=== PATIENT | female | born 1955 | race Caucasian/White ===

== ENCOUNTER 2016-08-05 16:25 | Outpatient (CLI) | payer BC ==
[2016-08-05 17:28] LABS: ALT (SGPT) 12 U/L (0-55); AST (SGOT) 16 U/L (5-34); Alkaline Phosphatase 62 U/L (40-150); Anion Gap 10 mmol/L (10-20); BUN (Urea Nitrogen) 11 mg/dL (9.8-20.1); Bilirubin, Total 0.3 mg/dL (0.2-1.2); Calc. Creatinine Clearance 0 mL/min (70-130); Calcium 8.4 mg/dL (7.8-10.44); Carbon Dioxide 31 mmol/L (23-31); Chloride 104 mmol/L (98-107); Estimated GFR-MDRD 63; Globulin 2.4 g/dL (2.4-3.5); Glucose 77 mg/dL (80-115); Potassium 3.9 mmol/L (3.5-5.1); Protein, Total 6.4 g/dL (5.8-8.1); Sodium 141 mmol/L (136-145)
[2016-08-05 17:46] LABS: #Basophils 0.1 thou/uL (0.0-0.2); #Eosinphils 0.5 thou/uL (0.0-0.7); #Lymphocytes 2.4 thou/uL (1.20-3.40); #Monocytes 0.6 thou/uL (0.11-0.59); #Neutrophils 2.4 thou/uL (1.40-6.50); %Basophils 1.3 % (0.0-1.0); %Eosinophils 8.2 % (0.0-10.0); %Lymphocytes 40.5 % (21.0-51.0); %Monocytes 10.3 % (0.0-10.0); %Neutrophils 39.8 % (42.0-75.0); Hemoglobin 9.9 g/dL (12.0-16.0); Mean Corpuscular HGB CONC 31.1 g/dL (32.0-36.0); Mean Corpuscular Hemoglobin 26.7 pg (27.0-31.0); Mean Corpuscular Volume 85.6 fl (81.0-99.0); Mean Platelet Volume 6.6 fL (7.4-10.4); Platelet Count 218 thou/uL (130-400); RBC Distribution Width 14.2 % (11.5-14.5); Red Blood Cell (RBC) Count 3.72 mill/uL (4.20-5.40)
== END 2016-08-05 16:26 | disposition home or self-care (01) ==
LOC: HPCALD 16:25
PROVIDERS: ATTEND Family Medicine
DX: R53.83 Other fatigue (principal); R63.5 Abnormal weight gain
CPT/HCPCS: 36415; 80053; 84443; 85025

== ENCOUNTER 2016-12-26 18:17 | Emergency (ER) | payer BC ==
[2016-12-26] MEDS ORDERED: Adacel (T-DAP) 0.5 ML VIAL ONE (18:30)
[2016-12-26] MEDS ORDERED: traMADol HCl 50 MG TAB ONE (18:41)
[2016-12-26] MEDS ORDERED: Cephalexin 250 MG CAP ONE (18:43)
[2016-12-26] MEDS ORDERED: Bacitracin Zinc 1 Packet ONE (18:44)
== END 2016-12-26 18:55 | disposition home or self-care (01) ==
LOC: BURERS 18:17
DX: S81.812A Laceration without foreign body, left lower leg, initial encounter (principal); K21.9 Gastro-esophageal reflux disease without esophagitis; E78.5 Hyperlipidemia, unspecified; M06.9 Rheumatoid arthritis, unspecified; F32.9 Major depressive disorder, single episode, unspecified; X58.XXXA Exposure to other specified factors, initial encounter
CPT/HCPCS: 90471; 90715

== ENCOUNTER 2017-06-19 11:09 | Emergency (ER) | payer OTHER ==
[2017-06-19] MEDS ORDERED: Ondansetron HCl/PF 4 MG/2 ML Vial ONE (11:25)
[2017-06-19 11:36] LABS: Bilirubin Negative (Negative); Blood, Urine Negative (Negative); Clarity Clear (Clear); Glucose, Urine (Dipstick) Negative (Negative); Leukocyte Negative (Negative); Nitrite Negative (Negative); Protein, Urine (Dipstick) Negative (Neg-Trace); Specific Gravity, Urine 1.015 (1.005-1.030); Urobilinogen 0.2 mg/dL (0.2-1.0)
[2017-06-19 11:49] LABS: ALT (SGPT) 18 U/L (8-55); AST (SGOT) 18 U/L (5-34); Alkaline Phosphatase 58 U/L (40-150); Anion Gap 17 mmol/L (10-20); BUN (Urea Nitrogen) 15 mg/dL (9.8-20.1); Bilirubin, Total 0.6 mg/dL (0.2-1.2); Calc. Creatinine Clearance 0 mL/min (70-130); Calcium 8.9 mg/dL (7.8-10.44); Carbon Dioxide 22 mmol/L (23-31); Chloride 104 mmol/L (98-107); Estimated GFR-MDRD 70; Globulin 2.5 g/dL (2.4-3.5); Glucose 129 mg/dL (80-115); Lipase 10 U/L (8-78); Potassium 3.7 mmol/L (3.5-5.1); Protein, Total 6.5 g/dL (6.0-8.3); Sodium 139 mmol/L (136-145)
[2017-06-19 11:51] LABS: Hemoglobin 9.9 g/dL (12.0-16.0); Mean Corpuscular HGB CONC 32.9 g/dL (32.0-36.0); Mean Platelet Volume 6.8 fL (7.4-10.4); Platelet Count 203 thou/uL (130-400); RBC Distribution Width 13.2 % (11.5-14.5); Red Blood Cell (RBC) Count 3.79 mill/uL (4.20-5.40); White Blood Cell (WBC) Count 9.8 thou/uL (4.8-10.8)
[2017-06-19 11:56] LABS: Band 21 % (5-11); Lymphocytes 9 % (21-51); MDiff Complete? YES; Monocytes 8 % (0-10); Neutrophil 58 % (42-75); Reactive Lymphocytes 4 % (0-10)
[2017-06-19] MEDS ORDERED: Azithromycin 500 MG VIAL ONE (11:58)
[2017-06-19] MEDS ORDERED: Sodium Chloride 0.9% 0 ML ONE (11:59)
[2017-06-19] MEDS ORDERED: Prochlorperazine 10 MG/2 ML VIAL ONE (12:59)
[2017-06-19] MEDS ORDERED: Ketorolac Tromethamine 30 MG/ML VIAL ONE (13:00)
--- NOTE | 2017-06-19 14:36 | RAD ---
PORTABLE CHEST: Date: 06-19-17 An AP portable film at 1125 is compared with an 03-16-16 study. FINDINGS: A patchy infiltrate is seen in the right middle lobe region consistent with pneumonia. The left lung is clear. The heart is normal in size for an AP study. There is no vascular congestion, edema, or ple ural effusion. IMPRESSION: Patchy right middle lobe infiltrate consistent with pneumonia. Code T POS: HOME
== END 2017-06-19 13:40 | disposition home or self-care (01) ==
LOC: BURERS 11:09
DX: J18.1 Lobar pneumonia, unspecified organism (principal); K21.9 Gastro-esophageal reflux disease without esophagitis; E78.5 Hyperlipidemia, unspecified; Z79.899 Other long term (current) drug therapy
CPT/HCPCS: 71045; 80053; 81003; 83690; 85025; 96361; 96365; 96375; J0456; J0780; J1885; J2405; J7050

== ENCOUNTER 2017-06-22 14:12 | Inpatient (IN) | payer OTHER ==
[2017-06-22] MEDS ORDERED: Bisacodyl 10 MG SUPP PR PRN (14:29)
[2017-06-22] MEDS ORDERED: Milk Of Magnesia 30 ML UDCUP PO PRN (14:29)
[2017-06-22] MEDS ORDERED: Guaifenesin DM 100-10/5 ML UDCUP PO PRN ×2 (14:29→18:23)
[2017-06-22] MEDS ORDERED: cefTRIAXone\\ROCEPHIN 1 GM in Sodium Chloride 0.9% 100 ML IVPB SCH (14:30)
[2017-06-22 15:11] LABS: ALT (SGPT) 13 U/L (8-55); AST (SGOT) 14 U/L (5-34); Albumin 3.8 g/dL (3.4-4.8); Alkaline Phosphatase 73 U/L (40-150); Anion Gap 17 mmol/L (10-20); BUN (Urea Nitrogen) 9 mg/dL (9.8-20.1); Bilirubin, Total 0.5 mg/dL (0.2-1.2); Calc. Creatinine Clearance 0 mL/min (70-130); Calcium 9.5 mg/dL (7.8-10.44); Carbon Dioxide 24 mmol/L (23-31); Chloride 98 mmol/L (98-107); Estimated GFR-MDRD 76; Globulin 2.7 g/dL (2.4-3.5); Glucose 90 mg/dL (80-115); Protein, Total 6.5 g/dL (6.0-8.3); Sodium 136 mmol/L (136-145)
[2017-06-22 15:13] LABS: Band 1 % (5-11); Elliptocytes SLIGHT = 2-5 cells (100X) (0-1/hpf); Eosinophils 3 % (0-10); Hemoglobin 8.6 g/dL (12.0-16.0); Hypochromia SLIGHT = 6-15 cells (100X) (0-5/hpf); Lymphocytes 17 % (21-51); MDiff Complete? YES; Mean Corpuscular HGB CONC 32.5 g/dL (32.0-36.0); Mean Corpuscular Hemoglobin 25.5 pg (27.0-31.0); Mean Corpuscular Volume 78.6 fl (81.0-99.0); Mean Platelet Volume 6.2 fL (7.4-10.4); Microcytosis SLIGHT = 6-15 cells (100X) (0-5/hpf); Monocytes 3 % (0-10); Neutrophil 76 % (42-75); Platelet Count 230 thou/uL (130-400); Red Blood Cell (RBC) Count 3.35 mill/uL (4.20-5.40)
[2017-06-22 15:18] LABS: Potassium 2.8 mmol/L (3.5-5.1)
[2017-06-22] MEDS: Azithromycin 500 MG in Sodium Chloride 0.9% 250 ML 250 ML IVPB SCH (15:23)
[2017-06-22] MEDS: Sodium Chloride 0.9% 1,000 ML IV SCH ×2 (15:23→23:44)
[2017-06-22] MEDS ORDERED: Potassium Chloride 20 MEQ/100 ML PREMIX BAG IVPB SCH (16:00)
[2017-06-22] MEDS ORDERED: Potassium Chloride 40 MEQ in Premix Bag 1 BAG IVPB SCH (16:45)
[2017-06-22] MEDS: cefTRIAXone\\ROCEPHIN 1 GM in Sodium Chloride 0.9% 100 ML IVPB SCH (16:57)
[2017-06-22] MEDS ORDERED: ACETAMINOPHEN PO PRN ×2 (17:57→18:30)
[2017-06-22] MEDS ORDERED: OXYCODONE PO PRN ×2 (17:57→18:30)
[2017-06-22] MEDS ORDERED: hydrOXYzine 25 MG TAB PO PRN (18:23)
[2017-06-22] MEDS ORDERED: HYDROcodone/Acetaminophen 5/325 mg Tablet PO PRN (18:24)
[2017-06-22] MEDS ORDERED: tiZANidine HCl 4 MG TAB PO PRN (18:25)
[2017-06-22] MEDS ORDERED: HYDROcodone/Acetaminophen 10/325 mg Tablet PO PRN (18:25)
[2017-06-22] MEDS ORDERED: Zolpidem Tartrate 5 MG TAB PO SCH (21:00)
[2017-06-22] MEDS ORDERED: tiZANidine HCl 4 MG TAB PO SCH (21:00)
[2017-06-22] MEDS ORDERED: Famotidine 20 MG TAB PO SCH (21:00)
[2017-06-22] MEDS: DULoxetine 30 MG CAP PO SCH (22:29)
[2017-06-22] MEDS: Pregabalin 75 MG CAP PO SCH (22:30)
[2017-06-22] MEDS: Famotidine 20 MG TAB PO SCH (22:30)
[2017-06-22] MEDS: Ferrous Sulfate 325 MG TAB PO SCH (22:31)
[2017-06-22] MEDS: TROSPIUM 20 MG TABLET PO SCH (22:32)
[2017-06-22] MEDS: Simvastatin 40 MG TAB PO SCH (22:32)
[2017-06-23] MEDS: Sodium Chloride 0.9% 1,000 ML IV SCH ×2 (04:35→13:48)
[2017-06-23 05:30] LABS: #Basophils 0.1 thou/uL (0.0-0.2); #Eosinphils 0.2 thou/uL (0.0-0.7); #Lymphocytes 1.5 thou/uL (1.20-3.40); #Monocytes 0.4 thou/uL (0.11-0.59); #Neutrophils 3.3 thou/uL (1.40-6.50); %Basophils 1.5 % (0.0-1.0); %Eosinophils 2.8 % (0.0-10.0); %Lymphocytes 27.5 % (21.0-51.0); %Monocytes 7.7 % (0.0-10.0); %Neutrophils 60.4 % (42.0-75.0); Hemoglobin 8.5 g/dL (12.0-16.0); Mean Corpuscular HGB CONC 31.7 g/dL (32.0-36.0); Mean Corpuscular Hemoglobin 25.1 pg (27.0-31.0); Mean Corpuscular Volume 79.2 fl (81.0-99.0); Mean Platelet Volume 5.8 fL (7.4-10.4); Platelet Count 238 thou/uL (130-400); RBC Distribution Width 12.9 % (11.5-14.5); Red Blood Cell (RBC) Count 3.37 mill/uL (4.20-5.40); White Blood Cell (WBC) Count 5.5 thou/uL (4.8-10.8)
[2017-06-23 05:39] LABS: Anion Gap 16 mmol/L (10-20); BUN (Urea Nitrogen) 5 mg/dL (9.8-20.1); Calc. Creatinine Clearance 95 mL/min (70-130); Calcium 8.7 mg/dL (7.8-10.44); Carbon Dioxide 20 mmol/L (23-31); Chloride 106 mmol/L (98-107); Estimated GFR-MDRD 90; Glucose 82 mg/dL (80-115); Potassium 3.3 mmol/L (3.5-5.1); Sodium 139 mmol/L (136-145)
[2017-06-23] MEDS ORDERED: Lorazepam 2 MG/ML VIAL ONE (06:33)
[2017-06-23] MEDS ORDERED: clonazePAM 0.5 MG TAB PO PRN (09:00)
[2017-06-23] MEDS ORDERED: hydrOXYzine 25 MG TAB PO SCH (09:00)
[2017-06-23] MEDS: Citalopram 20 MG TAB PO SCH (10:02)
[2017-06-23] MEDS: TROSPIUM 20 MG TABLET PO SCH ×2 (10:02→20:50)
[2017-06-23] MEDS: Ferrous Sulfate 325 MG TAB PO SCH ×2 (10:02→20:51)
[2017-06-23] MEDS: Docusate 100 MG CAP PO SCH (10:02)
[2017-06-23] MEDS: Pregabalin 75 MG CAP PO SCH ×3 (10:03→20:50)
[2017-06-23] MEDS: Folic Acid 1 MG TAB PO SCH (10:04)
[2017-06-23] MEDS: Famotidine 20 MG TAB PO SCH ×2 (10:08→20:51)
[2017-06-23] MEDS: Acetaminophen 325 MG TAB PO PRN (10:48)
[2017-06-23] MEDS: Azithromycin 500 MG in Sodium Chloride 0.9% 250 ML 250 ML IVPB SCH (13:53)
[2017-06-23] MEDS ORDERED: Potassium Chloride 20 MEQ TAB PO SCH (15:30)
[2017-06-23] MEDS ORDERED: Sterile Water 10 ML VIAL FS SCH (16:45)
[2017-06-23] MEDS ORDERED: SODIUM CHLORIDE 0.9% IVPB SCH (17:00)
[2017-06-23] MEDS ORDERED: Vancomycin HCl 750 MG in Sodium Chloride 0.9% 100 ML IVPB SCH (17:00)
[2017-06-23] MEDS ORDERED: VANCOMYCIN HCL IVPB SCH (17:00)
[2017-06-23] MEDS: cefTRIAXone\\ROCEPHIN 1 GM VIAL SLOW IVP SCH (17:14)
[2017-06-23] MEDS: cefTRIAXone\\ROCEPHIN 1 GM in Sodium Chloride 0.9% 100 ML IVPB SCH (17:15)
[2017-06-23] MEDS: Vancomycin HCl 750 MG in Sodium Chloride 0.9% 250 ML 250 ML IVPB SCH (17:25)
[2017-06-23] MEDS: Simvastatin 40 MG TAB PO SCH (20:51)
[2017-06-23] MEDS: DULoxetine 30 MG CAP PO SCH (20:51)
[2017-06-23] MEDS: Zolpidem Tartrate 5 MG TAB PO PRN (21:52)
[2017-06-24] MEDS: Vancomycin HCl 750 MG in Sodium Chloride 0.9% 250 ML 250 ML IVPB SCH ×2 (05:02→17:48)
[2017-06-24 05:39] LABS: Anion Gap 12 mmol/L (10-20); BUN (Urea Nitrogen) 4 mg/dL (9.8-20.1); Calc. Creatinine Clearance 95 mL/min (70-130); Calcium 8.8 mg/dL (7.8-10.44); Carbon Dioxide 24 mmol/L (23-31); Chloride 109 mmol/L (98-107); Estimated GFR-MDRD 90; Glucose 100 mg/dL (80-115); Potassium 3.4 mmol/L (3.5-5.1); Sodium 142 mmol/L (136-145)
--- NOTE | 2017-06-24 07:15 | RAD ---
CHEST 2 VIEWS: Date: 06/24/17 Comparison is made with the 06/22/17 study. There continues to be a patchy right hilar opacity. While it changes shape slightly film to film, it is still largely there. There are infiltrative changes in each lung base. Comparison with the 8 film shows only slight changes and not really any real progress. At this point, it might be well to consider an elective CT to assess the status of the patient's lungs and the patchy right hilar opaci ty. There may be a small right pleural effusion, but certainly no large one. The cardiac size is stab le. IMPRESSION: No real progress since 06/22/17. Some minor changes in the infiltrative areas, but no real improvemen t. Elective CT might be considered at this point. POS: HOME
[2017-06-24] MEDS ORDERED: Potassium Chloride 20 MEQ TAB PO SCH (08:45)
[2017-06-24] MEDS: Citalopram 20 MG TAB PO SCH (10:02)
[2017-06-24] MEDS: TROSPIUM 20 MG TABLET PO SCH ×2 (10:03→21:21)
[2017-06-24] MEDS: Pregabalin 75 MG CAP PO SCH ×3 (10:03→21:22)
[2017-06-24] MEDS: Docusate 100 MG CAP PO SCH (10:03)
[2017-06-24] MEDS: Folic Acid 1 MG TAB PO SCH (10:03)
[2017-06-24] MEDS: Famotidine 20 MG TAB PO SCH ×2 (10:04→21:20)
[2017-06-24] MEDS: Ferrous Sulfate 325 MG TAB PO SCH ×2 (10:04→21:21)
[2017-06-24] MEDS: Azithromycin 500 MG in Sodium Chloride 0.9% 250 ML 250 ML IVPB SCH (15:45)
[2017-06-24] MEDS: cefTRIAXone\\ROCEPHIN 1 GM VIAL SLOW IVP SCH (17:46)
[2017-06-24] MEDS: Nystatin 500,000 UNITS/5 ML UDCUP SSW SCH ×2 (17:46→21:32)
--- NOTE | 2017-06-24 19:52 | CT ---
CT OF THE THORAX WITH CONTRAST 06/24/[address] of the chest was done in this patient with persisting pneumonia and abnormalities on the est x-ray. Axial slices were acquired. Then coronal reconstructions were done. Patchy infiltrates are present throughout the lungs bilaterally. The densest infiltrate with air bron chograms is located in the right lower lobe. While it is somewhat peripheral and wedge shaped, though the study was not done using a pulmonary embolism protocol, there is moderately opacified pulmonary arteries that showed no gross defects in the larger branches. Emboli in smaller branches would not be seen on this study. Some of the infiltrates are slightly more nodular in character. There is no sign ificant pleural effusion. A few of the nodes in the mediastinum are mildly enlarged. One just anterior to the bifurcation measu res about 1.7 cm in diameter, but the total number of nodes is not excessive. No definite mass is see n. There is some arteriosclerotic change in the aorta but I am not impressed by much in the coronary arteries. There is no sign of pericardial effusion. There are several small cysts scattered throughout the liver. There are quite a few cysts associated with each kidney, the largest measuring 3.9 cm in the left kidney and 2.0 cm in the right kidney. A m oderate sized hiatal hernia was noted. IMPRESSION: 1. Patchy bilateral infiltrates, more so on the right than the left. Pneumonia is presumed. The distribution of infiltrates suggests organism may not be conventional. 2. Peripheral wedge shaped infiltrate in the right lower lobe with air bronchograms. Presumably still part of the same infectious process. As noted above, this was not done as a CT angio case, so t here is not excellent opacification of the pulmonary arteries. Nevertheless, at least in the larger branches, there were no gross defects. 3. Moderate sized hiatal hernia. 4. Several hepatic and renal cysts. POS: HOME
[2017-06-24] MEDS: Simvastatin 40 MG TAB PO SCH (21:22)
[2017-06-24] MEDS: DULoxetine 30 MG CAP PO SCH (21:22)
[2017-06-25 04:29] LABS: #Basophils 0.1 thou/uL (0.0-0.2); #Eosinphils 0.3 thou/uL (0.0-0.7); #Lymphocytes 2.2 thou/uL (1.20-3.40); #Monocytes 0.6 thou/uL (0.11-0.59); #Neutrophils 3.2 thou/uL (1.40-6.50); %Basophils 1.7 % (0.0-1.0); %Eosinophils 4.2 % (0.0-10.0); %Lymphocytes 34.3 % (21.0-51.0); %Monocytes 8.8 % (0.0-10.0); %Neutrophils 50.9 % (42.0-75.0); Hemoglobin 8.2 g/dL (12.0-16.0); Mean Corpuscular HGB CONC 32.9 g/dL (32.0-36.0); Mean Corpuscular Hemoglobin 25.7 pg (27.0-31.0); Mean Corpuscular Volume 78.2 fl (81.0-99.0); Mean Platelet Volume 5.6 fL (7.4-10.4); Platelet Count 268 thou/uL (130-400); Red Blood Cell (RBC) Count 3.19 mill/uL (4.20-5.40); White Blood Cell (WBC) Count 6.3 thou/uL (4.8-10.8)
[2017-06-25 04:40] LABS: Anion Gap 14 mmol/L (10-20); BUN (Urea Nitrogen) 5 mg/dL (9.8-20.1); Calc. Creatinine Clearance 87 mL/min (70-130); Calcium 8.9 mg/dL (7.8-10.44); Carbon Dioxide 25 mmol/L (23-31); Chloride 106 mmol/L (98-107); Estimated GFR-MDRD 82; Glucose 110 mg/dL (80-115); Sodium 141 mmol/L (136-145)
[2017-06-25] MEDS: Vancomycin HCl 1 GM in Sodium Chloride 0.9% 250 ML 250 ML IVPB SCH ×2 (05:40→17:00)
[2017-06-25] MEDS: Acetaminophen 325 MG TAB PO PRN ×2 (05:53→13:39)
[2017-06-25] MEDS: Vancomycin HCl 750 MG in Sodium Chloride 0.9% 250 ML 250 ML IVPB SCH (06:04)
[2017-06-25] MEDS: Citalopram 20 MG TAB PO SCH (09:02)
[2017-06-25] MEDS: Famotidine 20 MG TAB PO SCH ×2 (09:02→20:44)
[2017-06-25] MEDS: Docusate 100 MG CAP PO SCH (09:02)
[2017-06-25] MEDS: Folic Acid 1 MG TAB PO SCH (09:02)
[2017-06-25] MEDS: Nystatin 500,000 UNITS/5 ML UDCUP SSW SCH ×4 (09:02→20:44)
[2017-06-25] MEDS: Ferrous Sulfate 325 MG TAB PO SCH ×2 (09:03→20:45)
[2017-06-25] MEDS: Pregabalin 75 MG CAP PO SCH ×3 (09:03→20:45)
[2017-06-25] MEDS: TROSPIUM 20 MG TABLET PO SCH ×2 (09:04→20:44)
--- NOTE | 2017-06-25 13:38 | PRG ---
DATE OF SERVICE: 06/25/2017 ATTENDING PHYSICIAN: Zuleyma Gates D.O. SUBJECTIVE: The patient denies any complaints, no shortness of breath, no fever. Appetite is good. OBJECTIVE: VITAL SIGNS: Blood pressure 132/59, O2 sat 93% on room air, RR of 20, heart rate of 89, temperature of 98.2. GENERAL: The patient is alert, oriented, not in respiratory distress. HEENT: Normocephalic, atraumatic. Pupils are equally reactive to light. Pale palpebral conjunctiva . Negative for tonsillopharyngeal congestion. NECK: Supple. Negative for lymphadenopathy. CHEST AND LUNGS: Symmetrical expansion. Clear to auscultation bilaterally. HEART: Regular rate and rhythm. Negative for murmur. ABDOMEN: Flat, soft, nontender. Normoactive bowel sounds. EXTREMITIES: No clubbing, no cyanosis. No edema. LABORATORY DATA: WBC of 6.3, hemoglobin of 8.2, hematocrit of 25, MCV of 78.2, neutrophils of 50, ly mphocytes of 34. BMP, sodium of 141, potassium of 4, BUN of 5, creatinine of 0.72. Chest CT showed patchy bilateral infiltrates, worse on the right. Presence of peripheral wedge-shape d infiltrate on right lower lobe with air bronchograms. Positive for moderate-sized hiatal hernia. ASSESSMENT: 1. Respiratory distress secondary to bilateral lobe pneumonia. 2. Microcytic anemia. 3. Chronic pain syndrome. 4. Depression with anxiety. PLAN: 1. Continue present IV antibiotics. 2. Continue neb treatments scheduled. 3. Continue present nursing care. 4. DVT prophylaxis with the use of SCDs. 5. Anticipate discharge in 2-3 days.
[2017-06-25] MEDS ORDERED: Sterile Water 10 ML ONE (14:55)
[2017-06-25] MEDS: Azithromycin 500 MG in Sodium Chloride 0.9% 250 ML 250 ML IVPB SCH (15:02)
[2017-06-25] MEDS: cefTRIAXone\\ROCEPHIN 1 GM VIAL SLOW IVP SCH (16:46)
[2017-06-25] MEDS: Simvastatin 40 MG TAB PO SCH (20:44)
[2017-06-25] MEDS: DULoxetine 30 MG CAP PO SCH (20:44)
[2017-06-25] MEDS: Zolpidem Tartrate 5 MG TAB PO PRN (21:09)
[2017-06-26] MEDS: Vancomycin HCl 1 GM in Sodium Chloride 0.9% 250 ML 250 ML IVPB SCH ×2 (05:08→17:00)
[2017-06-26] MEDS: Folic Acid 1 MG TAB PO SCH (10:20)
[2017-06-26] MEDS: Ferrous Sulfate 325 MG TAB PO SCH ×2 (10:20→21:13)
[2017-06-26] MEDS: Famotidine 20 MG TAB PO SCH ×2 (10:21→21:13)
[2017-06-26] MEDS: Citalopram 20 MG TAB PO SCH (10:21)
[2017-06-26] MEDS: Docusate 100 MG CAP PO SCH (10:21)
[2017-06-26] MEDS: Pregabalin 75 MG CAP PO SCH ×3 (10:22→21:14)
[2017-06-26] MEDS: Nystatin 500,000 UNITS/5 ML UDCUP SSW SCH ×4 (10:22→21:41)
[2017-06-26] MEDS: TROSPIUM 20 MG TABLET PO SCH ×2 (10:24→21:13)
[2017-06-26] MEDS: Azithromycin 500 MG in Sodium Chloride 0.9% 250 ML 250 ML IVPB SCH (13:59)
[2017-06-26] MEDS: cefTRIAXone\\ROCEPHIN 1 GM VIAL SLOW IVP SCH (16:59)
[2017-06-26] MEDS: DULoxetine 30 MG CAP PO SCH (21:13)
[2017-06-26] MEDS: Simvastatin 40 MG TAB PO SCH (21:13)
[2017-06-26] MEDS: Zolpidem Tartrate 5 MG TAB PO PRN (22:47)
[2017-06-27 01:13] VITALS: BMI 29.9
[2017-06-27 04:45] LABS: Vancomycin, Trough 21.6 ug/mL
[2017-06-27] MEDS: Vancomycin HCl 1 GM in Sodium Chloride 0.9% 250 ML 250 ML IVPB SCH (05:25)
[2017-06-27] MEDS: Vancomycin HCl 750 MG in Sodium Chloride 0.9% 250 ML 250 ML IVPB SCH ×2 (05:40→16:32)
[2017-06-27] MEDS: Pregabalin 75 MG CAP PO SCH ×3 (08:42→21:45)
[2017-06-27] MEDS: Docusate 100 MG CAP PO SCH (08:44)
[2017-06-27] MEDS: Folic Acid 1 MG TAB PO SCH (08:44)
[2017-06-27] MEDS: Citalopram 20 MG TAB PO SCH (08:44)
[2017-06-27] MEDS: Famotidine 20 MG TAB PO SCH ×2 (08:45→21:44)
[2017-06-27] MEDS: TROSPIUM 20 MG TABLET PO SCH ×2 (08:45→21:43)
[2017-06-27] MEDS: Ferrous Sulfate 325 MG TAB PO SCH ×2 (08:45→21:44)
[2017-06-27] MEDS: Nystatin 500,000 UNITS/5 ML UDCUP SSW SCH ×4 (08:46→22:46)
[2017-06-27] MEDS: Azithromycin 500 MG in Sodium Chloride 0.9% 250 ML 250 ML IVPB SCH (13:11)
[2017-06-27] MEDS: cefTRIAXone\\ROCEPHIN 1 GM VIAL SLOW IVP SCH (15:27)
[2017-06-27] MEDS: Acetaminophen 325 MG TAB PO PRN (15:35)
[2017-06-27] MEDS: DULoxetine 30 MG CAP PO SCH (21:43)
[2017-06-27] MEDS: Simvastatin 40 MG TAB PO SCH (21:44)
[2017-06-27] MEDS: Zolpidem Tartrate 5 MG TAB PO PRN (22:47)
[2017-06-28] MEDS: Vancomycin HCl 750 MG in Sodium Chloride 0.9% 250 ML 250 ML IVPB SCH (05:24)
[2017-06-28 06:32] VITALS: BP 111/59; TEMP 98
[2017-06-28] MEDS ORDERED: guaiFENesin ER 600 MG TAB PO SCH (09:00)
[2017-06-28] MEDS: Citalopram 20 MG TAB PO SCH (09:12)
[2017-06-28] MEDS: Docusate 100 MG CAP PO SCH (09:12)
[2017-06-28] MEDS: Ferrous Sulfate 325 MG TAB PO SCH (09:14)
[2017-06-28] MEDS: Folic Acid 1 MG TAB PO SCH (09:14)
[2017-06-28] MEDS: Famotidine 20 MG TAB PO SCH (09:14)
[2017-06-28] MEDS: Pregabalin 75 MG CAP PO SCH ×2 (09:15→15:51)
[2017-06-28] MEDS: TROSPIUM 20 MG TABLET PO SCH (09:15)
[2017-06-28] MEDS: Nystatin 500,000 UNITS/5 ML UDCUP SSW SCH ×2 (09:15→12:41)
[2017-06-28] MEDS ORDERED: Zolpidem Tartrate 5 MG TAB PO PRN (09:30)
[2017-06-28] MEDS ORDERED: clonazePAM 0.5 MG TAB PO PRN (09:30)
--- NOTE | 2017-06-28 13:41 | DIS ---
DATE OF DISCHARGE: 06/28/2017 ADMISSION DIAGNOSES: 1. Community-acquired pneumonia. 2. Hypokalemia. DISCHARGE DIAGNOSES: 1. Community-acquired pneumonia. 2. Hypokalemia. ATTENDING PHYSICIAN: Dr. Zuleyma Gates. PROCEDURES: 1. Chest x-ray from the date of admission showing worsening right middle lobe infiltrate and thicken ing of markings in the left lower lobe, not present before suggestive of infection. No vascular laith estion. 2. Chest x-ray from 06/24/2017 showing no real progress since 06/22/2017. 3. Chest CT 06/24/2017 showing patchy bilateral infiltrates, more so on the right than the left. Pn eumonia is presumed. The distribution of the infiltrates suggest organism may not be conventional. Peripheral wedge-shaped infiltrate in the right lower lobe with air bronchograms. Presumably still p art of the same infectious process. As noted above, this was not done as a CT angio case, so there i s not excellent opacification of the pulmonary arteries. Nevertheless, at least in the larger branch es, there were no gross defects. Moderate size hiatal hernia. Several hepatic and renal cysts. 4. Blood cultures x2 negative at 48 hours. 5. Sputum culture from 06/22/2017 which showed moderate normal respiratory clay. This was repeated on 06/23/2017 and showed yeast, few, and other few normal respiratory clay. HISTORY AND PHYSICAL: Please see the progress notes from the office with history and physical update form from the day of admission. HOSPITAL COURSE: Ms. Chakraborty is a 61-year-old female who had presented to the emergency r oom on 06/19/2017 complaining of fever, chills and myalgias. Imaging at that time showed a right mid dle lobe infiltrate suspicious for community-acquired pneumonia. The patient was started on Zithroma x. She presented on 06/22/2017 in the ambulatory setting to my office complaining of persistent chil ls and myalgias. She was not having fever, but just overall felt poorly. She had a cough that was m inimally productive and she felt slightly short of breath. A chest x-ray was repeated and showed wor sening right middle lobe pneumonia as well as some early left lower lobe changes consistent with pneu monia. Therefore, based on her presentation and chest x-ray findings, it was recommended the patient be admitted for IV antibiotic therapy. She was placed empirically on Rocephin and azithromycin as s he had a fluoroquinolone allergy documented. She throughout her hospital course had no leukocytosis or fever. She was continued on these agents and on 06/23/2017 due to little to no change on the ches t x-ray and CT findings, vancomycin was added. Over the course of her hospitalization, she has ken nued to improve daily. At present, she only admits to fatigue. She has a cough that is still minima lly productive. Denies any shortness of breath, chest pain, fever, chills or myalgias. At this time , the patient clinically has improved such that I feel she can be discharged home safely on oral anti biotics. I will have her complete an additional 7 days of cefdinir 300 mg twice daily. She will fol low up with me in the clinic in approximately 1 week and will follow up her imaging to resolution. The patient was notably hypokalemic with a potassium of 2.8 on admission. This was repleted througho ut her admission to a normal value of 4.2 on 06/25/2017. DISPOSITION: Discharge to home. CONDITION: Good. MEDICATIONS: 1. Tizanidine 4 mg p.o. at bedtime p.r.n. 2. Oxycodone/acetaminophen 10 mg q.4h. p.r.n. per pain management. 3. Hydroxyzine 25 mg p.o. daily p.r.n. itching. 4. Klonopin 1 mg p.o. daily p.r.n. 5. Zolpidem 10 mg p.o. at bedtime p.r.n. 6. VESIcare 10 mg p.o. q.a.m. 7. Simvastatin 40 mg p.o. at bedtime. 8. Ranitidine 150 mg p.o. b.i.d. p.r.n. 9. Lyrica 150 mg p.o. t.i.d. 10. Folic acid 1 mg p.o. q.a.m. 11. Ferrous sulfate 1 p.o. b.i.d. 12. Nexium 40 mg p.o. q.a.m. 13. Colace 100 mg p.o. daily. 14. Duloxetine 60 mg p.o. at bedtime. 15. Citalopram 40 mg p.o. at bedtime. 16. Vitamin D 1000 units p.o. daily. 17. Cefdinir 300 mg p.o. b.i.d. x7 days. 18. Mucinex ER 600 mg 2 p.o. b.i.d. x10 days for expectorant. FOLLOWUP: Follow up will be with me, Dr. Zuleyma Gates in 7 days. The patient should have repeat chest x-ray follow up to resolution.
== END 2017-06-28 15:55 | disposition home or self-care (01) | DRG 195 ==
LOC: BURMED 14:12
PROVIDERS: ADMIT Family Medicine; ATTEND Family Medicine
DX: J18.9 Pneumonia, unspecified organism (principal); D50.9 Iron deficiency anemia, unspecified; E87.6 Hypokalemia; F41.8 Other specified anxiety disorders; K21.9 Gastro-esophageal reflux disease without esophagitis; Z87.01 Personal history of pneumonia (recurrent); G89.4 Chronic pain syndrome; M79.1 Myalgia
CPT/HCPCS: 36415; 71046; 71260; 80048; 80053; 80202; 85025; 87040; 87070; 87205; 94640; A4216; J0456; J0696; J2060; J3370; J3480; J7050; J7620

== ENCOUNTER 2017-07-05 11:25 | Outpatient (CLI) | payer OTHER ==
--- NOTE | 2017-07-05 19:39 | RAD ---
CHEST TWO VIEWS: 07/05/17 Comparison is made with the 06/24 study. There has been considerable clearing in the right sided infiltrate since the prior exam. There is now only a minimal residual. The upper lobes are clear. There are no effusions. There are no congestive changes. The heart size is stable. The trachea is midline. IMPRESSION: Considerable improvement since 06/24. POS: HOME
== END 2017-07-05 11:26 | disposition home or self-care (01) ==
LOC: BURRAD 11:25
PROVIDERS: ATTEND Family Medicine
DX: J18.9 Pneumonia, unspecified organism (principal)
CPT/HCPCS: 71046

== ENCOUNTER 2018-02-20 18:58 | Emergency (ER) | payer OTHER ==
[2018-02-20] MEDS ORDERED: Ketorolac Tromethamine 30 MG/ML VIAL ONE (19:29)
[2018-02-20 19:43] LABS: ALT (SGPT) 17 U/L (8-55); AST (SGOT) 16 U/L (5-34); Albumin 4.1 g/dL (3.4-4.8); Alkaline Phosphatase 102 U/L (40-150); Anion Gap 16 mmol/L (10-20); BUN (Urea Nitrogen) 10 mg/dL (9.8-20.1); Bilirubin, Total 0.9 mg/dL (0.2-1.2); Calc. Creatinine Clearance 0 mL/min (70-130); Calcium 9.2 mg/dL (7.8-10.44); Carbon Dioxide 25 mmol/L (23-31); Chloride 97 mmol/L (98-107); Estimated GFR-MDRD 68; Glucose 121 mg/dL (80-115); Potassium 3.7 mmol/L (3.5-5.1); Protein, Total 7.1 g/dL (6.0-8.3); Sodium 134 mmol/L (136-145)
[2018-02-20 19:48] LABS: #Monocytes 0.7 thou/uL (0.11-0.59); #Neutrophils 8.6 thou/uL (1.40-6.50); %Basophils 0.3 % (0.0-1.0); %Eosinophils 0.2 % (0.0-10.0); %Lymphocytes 9.4 % (21.0-51.0); %Monocytes 6.5 % (0.0-10.0); %Neutrophils 83.5 % (42.0-75.0); Hemoglobin 9.3 g/dL (12.0-16.0); Hypochromia SLIGHT = 6-15 cells (100X) (0-5/hpf); MDiff Complete? YES; Mean Corpuscular HGB CONC 31.9 g/dL (32.0-36.0); Mean Corpuscular Hemoglobin 24.6 pg (27.0-31.0); Mean Corpuscular Volume 77.2 fL (78.0-98.0); Microcytosis SLIGHT = 6-15 cells (100X) (0-5/hpf); Platelet Count 317 thou/uL (130-400); RBC Distribution Width 13.7 % (11.5-14.5); Red Blood Cell (RBC) Count 3.78 mill/uL (4.20-5.40); Small Platelets SLIGHT; White Blood Cell (WBC) Count 10.3 thou/uL (4.8-10.8)
[2018-02-20 20:15] LABS: Bilirubin Negative (Negative); Blood, Urine Moderate (Negative); Clarity Cloudy (Clear); Glucose, Urine (Dipstick) Negative (Negative); Leukocyte Moderate (Negative); Nitrite Positive (Negative); Protein, Urine (Dipstick) 100 mg/dL (Neg-Trace); Urobilinogen 0.2 mg/dL (0.2-1.0)
[2018-02-20 20:20] LABS: RBC/HPF 0-3 HPF (0-3); Squamous Epithelial None Seen HPF (0-3)
[2018-02-20] MEDS ORDERED: Cephalexin 500 MG CAP ONE (20:20)
[2018-02-20 20:21] LABS: Bacteria/HPF 4+ HPF (None Seen); Crystals/HPF None Seen HPF (Negative); Hyaline Casts/LPF NONE SEEN LPF (0-3 Hyaline); Other Casts/LPF None Seen LPF (0-3 Hyaline); Oval Fat Bodies/HPF None Seen HPF (None Seen); Renal Epithelial None Seen HPF (0-3); Sperm/HPF None Seen HPF (None Seen); Transitional Epithelial NONE SEEN HPF (0-3); Trichomonas/HPF None Seen HPF (None Seen); Yeast-All Forms None Seen HPF (None Seen)
--- NOTE | 2018-02-20 22:13 | RAD ---
CHEST TWO VIEWS: 02/20/2018 COMPARISON: 07/05/2017 FINDINGS: The patient is turned to the side. Allowing for this, the lungs are probably clear. There is some g eneralized increase in basilar markings, but this was present before. No acute infiltrate or effusio n is seen. There is no vascular congestion or edema. IMPRESSION: Some chronic changes, but no acute finding. POS: HOME
== END 2018-02-20 20:30 | disposition home or self-care (01) ==
LOC: BURERS 18:58
DX: N39.0 Urinary tract infection, site not specified (principal); K21.9 Gastro-esophageal reflux disease without esophagitis; E78.5 Hyperlipidemia, unspecified; Z79.899 Other long term (current) drug therapy
CPT/HCPCS: 71046; 80053; 81003; 81015; 83605; 85025; 87804; 93005; 96361; 96374; J1885

== ENCOUNTER 2019-07-01 18:51 | Emergency (ER) | payer MEDICARE ==
[2019-07-01] MEDS ORDERED: traMADol HCl 50 MG TAB ONE (19:13)
--- NOTE | 2019-07-01 22:35 | RAD ---
FACIAL BONES FOUR VIEWS: Date: 07-01-2019 FINDINGS: No major fracture was identified. There may be some mucosal thickening in the right maxillary sinus b ut no airfluid levels or orbital rim fractures were seen. The zygomatic arches appear intact. The jany al septum is midline. On the lateral view, the nasal bones appeared intact. Degenerative changes are noted in the upper cervical spine. IMPRESSION: Possible mild mucosal thickening in the right maxillary sinus, but no facial fractures were demonstra jeremie. If symptoms persist, CT might be needed to look for any subtle injuries. POS: HOME
== END 2019-07-01 19:34 | disposition home or self-care (01) ==
LOC: BURERS 18:51
DX: S00.83XA Contusion of other part of head, initial encounter (principal); K21.9 Gastro-esophageal reflux disease without esophagitis; E78.5 Hyperlipidemia, unspecified; E78.00 Pure hypercholesterolemia, unspecified; M06.9 Rheumatoid arthritis, unspecified; D64.9 Anemia, unspecified; M79.7 Fibromyalgia; G62.9 Polyneuropathy, unspecified; F32.9 Major depressive disorder, single episode, unspecified; W01.198A Fall on same level from slipping, tripping and stumbling with subsequent striking against other object, initial encounter
CPT/HCPCS: 70150

== ENCOUNTER 2020-11-16 21:09 | Emergency (ER) | payer MEDICARE ==
[2020-11-16] MEDS ORDERED: methylPREDNISolone Sod Succ/PF 125 MG/2 ML VIAL ONE (21:20)
[2020-11-16] MEDS ORDERED: diphenhydrAMINE 50 MG/ML VIAL ONE (21:20)
[2020-11-16] MEDS ORDERED: hydrOXYzine 25 MG TAB ONE (23:14)
== END 2020-11-17 00:59 | disposition home or self-care (01) ==
LOC: BURERS 21:09
DX: T78.40XA Allergy, unspecified, initial encounter (principal); R21 Rash and other nonspecific skin eruption; R22.0 Localized swelling, mass and lump, head; K21.9 Gastro-esophageal reflux disease without esophagitis; M79.10 Myalgia, unspecified site; E78.5 Hyperlipidemia, unspecified; M19.90 Unspecified osteoarthritis, unspecified site
CPT/HCPCS: 96374; 96375; J1200; J2930

== ENCOUNTER 2021-09-14 18:39 | Emergency (ER) | payer MEDICARE ==
[2021-09-14] MEDS ORDERED: Famotidine 20 MG TAB ONE (19:00)
[2021-09-14] MEDS ORDERED: methylPREDNISolone Sod Succ/PF 125 MG/2 ML VIAL ONE (19:00)
== END 2021-09-14 19:15 | disposition home or self-care (01) ==
LOC: BURERS 18:39
DX: L50.0 Allergic urticaria (principal); K21.9 Gastro-esophageal reflux disease without esophagitis; E78.5 Hyperlipidemia, unspecified
CPT/HCPCS: 96372; 99283; J2930

== ENCOUNTER 2021-11-09 16:19 | Outpatient (CLI) | payer MEDICARE | END 2021-11-09 16:20 | disposition home or self-care (01) | LOC: BURRAD 16:19 | PROVIDERS: ATTEND Family Medicine | DX: M25.572 Pain in left ankle and joints of left foot (principal); M79.89 Other specified soft tissue disorders ==

== ENCOUNTER 2022-04-05 13:55 | Outpatient (CLI) | payer MEDICARE | END 2022-04-05 13:56 | disposition home or self-care (01) | LOC: BURRAD 13:55 | PROVIDERS: ATTEND Physical Medicine & Rehabilitation | DX: M25.562 Pain in left knee (principal) ==

== ENCOUNTER 2022-08-12 14:59 | Outpatient (CLI) | payer MEDICARE | END 2022-08-12 15:00 | disposition home or self-care (01) | LOC: BURRAD 14:59 | PROVIDERS: ATTEND Family Medicine | DX: M25.562 Pain in left knee (principal) ==

== ENCOUNTER 2023-09-13 12:05 | Outpatient (CLI) | payer MEDICARE | END 2023-09-13 12:06 | disposition home or self-care (01) | LOC: BURRAD 12:05 | PROVIDERS: ATTEND Family Medicine | DX: M25.551 Pain in right hip (principal); M54.50 Low back pain, unspecified; M47.816 Spondylosis without myelopathy or radiculopathy, lumbar region; Z98.890 Other specified postprocedural states | CPT/HCPCS: 72110 ==

== ENCOUNTER 2024-05-22 17:56 | Emergency (ER) | payer MEDICARE ==
[2024-05-22] MEDS ORDERED: Acetaminophen 500 MG TAB ONE (18:32)
[2024-05-22 18:36] LABS: #Basophils 0.1 thou/uL (0.0-0.2); #Lymphocytes 0.8 thou/uL (1.20-3.40); #Monocytes 0.9 thou/uL (0.11-0.59); #Neutrophils 11.3 thou/uL (1.40-6.50); %Basophils 0.5 % (0.0-1.0); %Eosinophils 0.1 % (0.0-10.0); %Monocytes 6.6 % (0.0-10.0); %Neutrophils 86.9 % (42.0-75.0); Mean Corpuscular HGB CONC 33.3 g/dL (32.0-36.0); Mean Corpuscular Hemoglobin 29.1 pg (27.0-31.0); Mean Corpuscular Volume 87.3 fl (78.0-98.0); Mean Platelet Volume 5.7 fL (7.4-10.4); Platelet Count 265 10x3/uL (130-400); RBC Distribution Width 11.8 % (11.5-14.5); Red Blood Cell (RBC) Count 4.12 mill/uL (4.20-5.40)
[2024-05-22 18:54] LABS: ALT (SGPT) 16 U/L (8-55); AST (SGOT) 15 U/L (5-34); Albumin 3.8 g/dL (3.4-4.8); Alkaline Phosphatase 77 U/L (40-110); Anion Gap 14 mmol/L (10-20); BUN (Urea Nitrogen) 13 mg/dL (9.8-20.1); Bilirubin, Total 0.4 mg/dL (0.2-1.2); Calc. Creatinine Clearance 0 mL/min (70-130); Calcium 8.9 mg/dL (7.8-10.44); Carbon Dioxide 26 mmol/L (23-31); Chloride 98 mmol/L (98-107); Estimated GFR 77; Globulin 2.4 g/dL (2.4-3.5); Glucose 121 mg/dL (80-115); Potassium 4.1 mmol/L (3.5-5.1); Protein, Total 6.2 g/dL (5.8-8.1); Sodium 134 mmol/L (136-145)
[2024-05-22] MEDS ORDERED: Azithromycin 250 MG TAB ONE (19:28)
[2024-05-22] MEDS ORDERED: cefTRIAXone (ROCEPHIN) 1 GM VIAL ONE (19:35)
[2024-05-22 19:55] LABS: Bilirubin Negative (Negative); Blood, Urine Negative (Negative); Clarity Clear (Clear); Glucose, Urine (Dipstick) Negative (Negative); Ketone, Urine Negative (Negative); Leukocyte Trace (Negative); Nitrite Negative (Negative); Protein, Urine (Dipstick) Negative (Neg-Trace); Urobilinogen 0.2 mg/dL (Less than 2); pH, Urine 5.5 (5.0-9.0)
[2024-05-22 19:57] LABS: Specific Gravity, Urine 1.004 (1.002-1.036)
[2024-05-22 20:12] LABS: CAUTI Indications for Culture Alt mental st,lethar; RBC/HPF None Seen HPF (0-3); Squamous Epithelial 0-3 HPF (0-3); WBC/HPF 0-3 HPF (0-3)
[2024-05-22 20:17] LABS: Bacteria/HPF Rare-Few HPF (None Seen); Renal Epithelial 0-3 HPF (None Seen)
[2024-05-22 20:18] LABS: Urine Culture Reflex No No
== END 2024-05-22 20:45 | disposition home or self-care (01) ==
LOC: BURERS 17:56
DX: J18.9 Pneumonia, unspecified organism (principal); K21.9 Gastro-esophageal reflux disease without esophagitis; E78.5 Hyperlipidemia, unspecified; M19.90 Unspecified osteoarthritis, unspecified site; M06.9 Rheumatoid arthritis, unspecified; M79.7 Fibromyalgia; Z79.899 Other long term (current) drug therapy
CPT/HCPCS: 36415; 71046; 80053; 81001; 83605; 85025; 87040; 87428; 96365; J0696

== ENCOUNTER 2025-01-08 10:07 | Emergency (ER) | payer MEDICARE ==
[2025-01-08] MEDS ORDERED: Tetracaine 0.5% PF 4 ML BOT ONE (10:40)
[2025-01-08] MEDS ORDERED: Fluorescein Opthalmic Strip ONE (10:40)
== END 2025-01-08 11:13 | disposition home or self-care (01) ==
LOC: BURERS 10:07
DX: S05.02XA Injury of conjunctiva and corneal abrasion without foreign body, left eye, initial encounter (principal); E78.5 Hyperlipidemia, unspecified; W29.3XXA Contact with powered garden and outdoor hand tools and machinery, initial encounter; Z79.899 Other long term (current) drug therapy
CPT/HCPCS: 99283